=== PATIENT | male | born 1990 | race Two or more races ===

== ENCOUNTER 2017-01-20 16:41 | Emergency (ER) | payer OTHER ==
[~2017-01-20] VITALS: Ht 193 cm; Wt 60.0 kg
[~2017-01-20 16:41] MED LIST: NO HOME MEDS
[2017-01-20] MEDS ORDERED: HYDR-565 PO (16:50)
[2017-01-20] MEDS ORDERED: HYDROmorphone 1 mg/ml syringe IV PRN (16:50)
[2017-01-20] MEDS ORDERED: ONDA4TAB9 PO (16:50)
[2017-01-20] MEDS ORDERED: AMOX-580 PO (16:50)
[2017-01-20] MEDS ORDERED: ceFAZolin 1000mg inj IV ONE (16:50)
[2017-01-20] MEDS ORDERED: BUPIVAcaine 0.5% inj/PF 30 ml vial IJ ONE (16:55)
[2017-01-20] MEDS ORDERED: cefazolin/dext.iso 2gm/50ml 50 ML IV ONE (17:05)
[2017-01-20] MEDS: ondansetron/PF 4mg/2ml inj IV ONE ×2 (17:38→17:43)
[2017-01-20] MEDS: TETanus/Pertussis (Acell)/Diphther VAC/PF (Tdap-Adult) 0.5ml syringe IM ONE ×2 (17:39→17:43)
[2017-01-20 19:01] VITALS: BP 147/80
== END 2017-01-20 19:03 ==
LOC: ER 16:42
DX: Z02.89 Encounter for other administrative examinations (principal); S41.132A Puncture wound without foreign body of left upper arm, initial encounter; S41.112A Laceration without foreign body of left upper arm, initial encounter; S00.31XA Abrasion of nose, initial encounter; S00.81XA Abrasion of other part of head, initial encounter; F11.10 Opioid abuse, uncomplicated; S47.2XXA Crushing injury of left shoulder and upper arm, initial encounter; F17.200 Nicotine dependence, unspecified, uncomplicated; W54.0XXA Bitten by dog, initial encounter; Y93.89 Activity, other specified; Y92.89 Other specified places as the place of occurrence of the external cause; Y99.9 Unspecified external cause status
CPT/HCPCS: 12034; 73060; 90471; 90715; 96365; 96375; 99284; A6222; A6266; A6449; J0690; J2405; J3490; J7030; A6446